=== PATIENT | female | born 1995 | race Two or more races ===

== ENCOUNTER 2021-11-10 11:16 | Emergency (ER) | payer OTHER ==
[~2021-11-10] VITALS: Ht 160 cm; Wt 63.5 kg
[2021-11-10] MEDS ORDERED: AMOX-277 PO (13:38)
[2021-11-10 13:55] LABS: Basophils # (auto) 0 10 ^3/uL (0-0.2); Basophils % (auto) 0.5 % (0.0-2.0); Eosinophils # (auto) 0.1 10 ^3/uL (0-0.8); Eosinophils % (auto) 1.4 % (0.0-7.0); Hematocrit 39.3 % (36.0-46.0); Hemoglobin 13.5 g/dL (12.2-16.2); Lymphocytes # (auto) 0.8 10 ^3/uL (0.4-5.4); Lymphocytes % (auto) 13.1 % (10.0-50.0); Mean Corpuscular Hemoglobin 31.4 pg (28.0-32.0); Mean Corpuscular Hgb Conc. 34.5 g/dL (32.0-36.0); Mean Corpuscular Volume 91.2 fL (80.0-100.0); Monocytes # (auto) 0.7 10 ^3/uL (0-1.3); Monocytes % (auto) 11.7 % (0.0-12.0); Neutrophils # (auto) 4.7 10 ^3/uL (1.6-8.6); Neutrophils % (auto) 73.3 % (37.0-80.0); Nucleated Red Blood Cells % 0.1 %; Red Cell Distribution Width 13.2 % (11.8-14.3); White Blood Cell 6.4 10^3/uL (4.4-10.8)
[2021-11-10 14:03] LABS: Potassium 3.9 mmol/L (3.5-5.1)
[2021-11-10 14:09] LABS: Albumin 3.8 g/dL (3.4-5.0); BUN/Creatinine Ratio 15.8; Bilirubin, Total 0.4 mg/dL (0.2-1.0); Total Protein 8.6 g/dL (6.4-8.2)
[2021-11-10 14:30] VITALS: BP 133/92
== END 2021-11-10 14:58 | disposition home or self-care (01) ==
LOC: ER 11:16
DX: J06.9 Acute upper respiratory infection, unspecified (principal); R53.83 Other fatigue; Z79.1 Long term (current) use of non-steroidal anti-inflammatories (NSAID); Z20.822 Contact with and (suspected) exposure to COVID-19
CPT/HCPCS: 36415; 71045; 80053; 85025; 87426

== ENCOUNTER 2022-08-16 08:53 | Emergency (ER) | payer MEDICAID, OTHER ==
[~2022-08-16] VITALS: Ht 157.5 cm; Wt 70.3 kg
[~2022-08-16 08:53] MED LIST: AMOX-277 PO
[2022-08-16 09:54] VITALS: BP 117/85
[2022-08-16 15:04] LABS: Urine Blood Negative /uL (Negative); Urine Specific Gravity 1.021 (1.001-1.035)
[2022-08-16 19:34] LABS: Urine Amorphous Sediment 1+ /hpf; Urine Bacteria 2+ /hpf (None Seen)
== END 2022-08-16 10:28 | disposition left against medical advice (07) ==
LOC: ER 08:53
DX: R50.9 Fever, unspecified (principal); Z53.21 Procedure and treatment not carried out due to patient leaving prior to being seen by health care provider
CPT/HCPCS: 81001

== ENCOUNTER 2024-02-06 19:09 | Emergency (ER) | payer MEDICAID ==
[~2024-02-06] VITALS: Ht 157.5 cm; Wt 74.0 kg
[~2024-02-06 19:09] MED LIST changes: -AMOX-277 PO; +AMOX875T4 PO
[2024-02-06 19:33] VITALS: BP 136/68; PULSE 104; RESP 16; O2SAT 95
== END 2024-02-06 23:02 | disposition left against medical advice (07) ==
LOC: ER 19:09
DX: M25.572 Pain in left ankle and joints of left foot (principal); Z53.21 Procedure and treatment not carried out due to patient leaving prior to being seen by health care provider; X58.XXXA Exposure to other specified factors, initial encounter; Y93.89 Activity, other specified; Y92.89 Other specified places as the place of occurrence of the external cause; Y99.8 Other external cause status
CPT/HCPCS: 73610

== ENCOUNTER 2024-02-08 15:46 | Emergency (ER) | payer MEDICAID ==
[~2024-02-08] VITALS: Ht 157.5 cm; Wt 73.1 kg
[2024-02-08 16:34] VITALS: BP 124/77; PULSE 105; RESP 18; TEMP 98.6; O2SAT 96
[2024-02-08] MEDS ORDERED: IBUP-1456 PO (16:34)
[2024-02-08] MEDS: IBUPROFEN 800 MG TAB PO ONE (16:42)
== END 2024-02-08 16:46 | disposition home or self-care (01) ==
LOC: ER 15:46
DX: S93.402A Sprain of unspecified ligament of left ankle, initial encounter (principal); X50.1XXA Overexertion from prolonged static or awkward postures, initial encounter; Y93.89 Activity, other specified; Y92.89 Other specified places as the place of occurrence of the external cause; Y99.8 Other external cause status

== ENCOUNTER 2024-02-14 14:11 | Emergency (ER) | payer MEDICAID ==
[~2024-02-14] VITALS: Ht 157.5 cm; Wt 72.6 kg
[~2024-02-14 14:11] MED LIST changes: +IBUP-1456 PO
[2024-02-14 15:24] VITALS: BP 126/90; PULSE 109; RESP 18; TEMP 99.7; O2SAT 98
[2024-02-14] MEDS ORDERED: NABU-72 PO (15:47)
[2024-02-14] MEDS ORDERED: AUG875T PO (15:47)
[2024-02-14] MEDS ORDERED: LIDO2SOL26 MT (15:47)
[2024-02-14] MEDS: KETOROLAC TROMETH 30 MG/ML 1ML VIAL IM ONE (15:56)
[2024-02-14] MEDS: cefTRIAXone SOD 1,000 MG VL IM ONE (15:57)
[2024-02-14] MEDS: LIDOCAINE 1% HCL (LOCAL ANESTH.) INJ 20ML MDV IJ ONE (15:58)
[2024-02-14] MEDS: LIDOCAINE 1% HCL (LOCAL ANESTH.) INJ 20ML MDV ONE (15:58)
== END 2024-02-14 16:10 | disposition home or self-care (01) ==
LOC: ER 14:11
DX: R07.0 Pain in throat (principal); Z79.899 Other long term (current) drug therapy
CPT/HCPCS: 96372; 99284; J0696; J1885; J2001

== ENCOUNTER 2024-04-09 16:11 | Emergency (ER) | payer MEDICAID ==
[~2024-04-09] VITALS: Ht 157.5 cm; Wt 70.0 kg
[~2024-04-09 16:11] MED LIST changes: +AUG875T PO; +LIDO2SOL26 MT; +NABU-72 PO
[2024-04-09 16:51] LABS: Urine Bacteria None Seen /hpf (None Seen)
[2024-04-09 17:05] LABS: Urine Blood TRACE /uL (Negative); Urine Clarity Clear (Clear); Urine Color Yellow (Yellow); Urine Mucus FEW (None Seen); Urine Protein, UAD Negative (Negative); Urine Specific Gravity 1.028 (1.001-1.035); Urine Urobilinogen Normal (Negative); Urine WBC 9 /hpf (0 - 5); Urine pH 5.5 (5.0-9.0)
[2024-04-09] MEDS ORDERED: LOPE1TAB9 PO (17:47)
[2024-04-09 18:03] VITALS: BP 123/78; PULSE 95; RESP 16; O2SAT 98
== END 2024-04-09 18:05 | disposition home or self-care (01) ==
LOC: ER 16:11
DX: R19.7 Diarrhea, unspecified (principal); Z79.899 Other long term (current) drug therapy
CPT/HCPCS: 81001

== ENCOUNTER 2024-07-14 08:51 | Emergency (ER) | payer MEDICAID ==
[~2024-07-14] VITALS: Ht 157.5 cm; Wt 75.0 kg
[~2024-07-14 08:51] MED LIST changes: +LOPE1TAB9 PO
[2024-07-14 09:02] VITALS: RESP 16; O2SAT 96
[2024-07-14 09:03] VITALS: BP 122/87; PULSE 89; RESP 18; TEMP 98; O2SAT 98
[2024-07-14] MEDS ORDERED: AMOX500C2 PO (09:30)
== END 2024-07-14 09:09 | disposition home or self-care (01) ==
LOC: ER 09:04
DX: J02.9 Acute pharyngitis, unspecified (principal); R09.81 Nasal congestion; Z79.899 Other long term (current) drug therapy